=== PATIENT | female | born 1995 | race Caucasian/White ===

== ENCOUNTER → 2022-01-27 | Outpatient (CLI) | payer OTHER, MEDICAID ==
--- NOTE | 2022-01-27 12:53 | Diagnostic Imaging Report ---
PROCEDURE: Pelvic comp/transvaginal sonogram. TECHNIQUE: Complete transabdominal and transvaginal pelvic ultrasound was performed. In addition, limited pelvic Doppler was performed. INDICATION: Abnormal uterine bleeding. Uterus is anteverted measuring 7.1 x 4.9 x 5.0 cm. There is an area of myometrial heterogeneity in the right uterus measuring approximately 3 cm in size suggestive of a fibroid. The endometrium is 5 mm in thickness. Right ovary measures 3.3 x 2.8 x 3.2 cm and the left ovary measures 3.1 x 1.8 x 2.7 cm. Both ovaries contain small follicles. Right ovary does contain a 15 mm cyst. There is blood flow to the right ovary. Blood flow in the left ovary was difficult to detect due to ovarian position. No free fluid is seen. IMPRESSION: 1. Probable uterine fibroid. 2. 15 mm right ovarian cyst. Dictated by: Dictated on workstation # [id number]
== END ==
LOC: RAD 09:47
PROVIDERS: ATTEND Obstetrics & Gynecology
DX: N83.201 Unspecified ovarian cyst, right side (principal)
CPT/HCPCS: 76830; 76856